=== PATIENT | male | born 1960 | race Caucasian/White ===

== ENCOUNTER → 2019-10-23 | Day surgery (SDC) | payer BC | LOC: MSO 07:36 | DX: K21.9 Gastro-esophageal reflux disease without esophagitis (principal); K44.9 Diaphragmatic hernia without obstruction or gangrene; I10 Essential (primary) hypertension; E78.5 Hyperlipidemia, unspecified; Z85.828 Personal history of other malignant neoplasm of skin; Z86.010 Personal history of colon polyps; Z87.891 Personal history of nicotine dependence; Z79.82 Long term (current) use of aspirin | CPT/HCPCS: 00731; J2704; J7120 ==

== ENCOUNTER 2021-11-25 07:20 | Emergency (ER) | payer BC ==
[~2021-11-25] VITALS: Ht 177.8 cm; Wt 100.5 kg
[2021-11-25] MEDS ORDERED: LISINOPRIL AND1 TA1 PO (07:55)
[2021-11-25] MEDS ORDERED: ATORVASTATIN CA20 MG PO (07:55)
[2021-11-25] MEDS ORDERED: OMEPRAZOLE40 MG PO (07:55)
[2021-11-25 07:58] LABS: HEMATOCRIT 42.8 % (42.0-52.0); HEMOGLOBIN 14.7 g/dL (13.5-18.0); MEAN CELL VOLUME 90 fl (78-100); MEAN CORPUSCULAR HEMOGLOBIN 31 pg (27-31); MEAN CORPUSCULAR HGB CONC 34 g/dL (33-37); MEAN PLATELET VOLUME 9.2 fl (7.4-10.4); PLATELET COUNT 310 K/mm3 (130-400); RED BLOOD COUNT 4.75 M/mm3 (4.20-5.60); RED CELL DISTRIBUTION WIDTH 13.1 % (11.5-14.5)
[2021-11-25 08:26] LABS: BAND 3 % (0-10); LYMPHOCYTE 4 % (20-51); MONOCYTE 4 % (3-10); NEUTROPHILS 89 % (42-75)
[2021-11-25 08:31] LABS: POTASSIUM 3.2 mmol/L (3.5-5.1)
[2021-11-25 08:32] LABS: CALCIUM 9.2 mg/dL (8.3-10.5)
[2021-11-25 08:34] LABS: TOTAL PROTEIN 6.4 g/dL (6.4-8.3)
[2021-11-25 08:35] LABS: TOTAL BILIRUBIN 1.1 mg/dL (0.2-1.2)
[2021-11-25 08:41] LABS: PARTIAL THROMBOPLASTIN TIME 22.5 SECONDS (21.0-32.0); PROTHROMBIN TIME 10.9 SECONDS (9.0-12.0)
[2021-11-25 09:09] LABS: URINE APPEARANCE CLEAR; URINE BILIRUBIN NEGATIVE (NEGATIVE); URINE COLOR YELLOW; URINE GLUCOSE NEGATIVE (NEGATIVE); URINE KETONE 1+ (NEGATIVE); URINE NITRATE NEGATIVE (NEGATIVE); URINE PROTEIN(semi-quant) 1+ (NEGATIVE); URINE UROBILINOGEN NORMAL (NORMAL)
[2021-11-25 09:10] LABS: URINE BLOOD 250 ery/uL (NEGATIVE); URINE LEUKOCYTE ESTERASE NEGATIVE (NEGATIVE)
[2021-11-25 09:24] VITALS: BP 118/71
[2021-11-25 09:27] LABS: URINE WBC 0-1 /hpf (0-3)
[2021-11-25 09:28] LABS: URINE MUCUS PRESENT (NOT PRESENT)
== END 2021-11-25 09:00 | disposition short-term general hospital (02) ==
LOC: ED 07:20
PROVIDERS: Physician Assistant
DX: I63.9 Cerebral infarction, unspecified (principal); F17.210 Nicotine dependence, cigarettes, uncomplicated
CPT/HCPCS: J3101; J7030; Q9967